=== PATIENT | female | born 1980 | race Asian ===

== ENCOUNTER 2017-02-03 21:03 | Emergency (ER) | payer OTHER ==
[~2017-02-03] VITALS: Ht 157.5 cm; Wt 61.4 kg
[~2017-02-03 21:03] MED LIST: NOCURR
[2017-02-03] MEDS ORDERED: KETOROLAC TROMETHAMINE 30 MG/ML VIAL IM ONE (22:15)
[2017-02-03] MEDS ORDERED: METHOCARBAMOL 500 MG TABLET PO ONE (22:45)
[2017-02-03 23:10] VITALS: BP 138/84
== END 2017-02-03 23:16 | disposition home or self-care (01) ==
LOC: EMS 21:05
DX: S13.4XXA Sprain of ligaments of cervical spine, initial encounter (principal); S16.1XXA Strain of muscle, fascia and tendon at neck level, initial encounter; V49.40XA Driver injured in collision with unspecified motor vehicles in traffic accident, initial encounter; Y93.89 Activity, other specified; Y92.89 Other specified places as the place of occurrence of the external cause; Y99.8 Other external cause status
CPT/HCPCS: 72040; 96372; 99284; J1885